=== PATIENT | female | born 1965 | race Caucasian/White ===

== ENCOUNTER 2017-09-22 18:38 | Emergency (ER) | payer MEDICAID ==
[~2017-09-22] VITALS: Ht 160 cm; Wt 61.7 kg
[2017-09-22 20:48] VITALS: BP 129/78
== END 2017-09-22 20:49 | disposition home or self-care (01) ==
LOC: ED 18:38
DX: S60.463A Insect bite (nonvenomous) of left middle finger, initial encounter (principal); L03.011 Cellulitis of right finger; W57.XXXA Bitten or stung by nonvenomous insect and other nonvenomous arthropods, initial encounter; Y93.89 Activity, other specified; Y92.89 Other specified places as the place of occurrence of the external cause; Y99.8 Other external cause status

== ENCOUNTER 2017-11-07 18:17 | Emergency (ER) | payer MEDICAID ==
[2017-11-07 21:45] VITALS: BP 149/92
== END 2017-11-07 21:45 | disposition home or self-care (01) ==
LOC: ED 18:17
DX: M54.6 Pain in thoracic spine (principal); R03.0 Elevated blood-pressure reading, without diagnosis of hypertension
CPT/HCPCS: J1885

== ENCOUNTER 2018-02-13 09:52 | Emergency (ER) | payer OTHER ==
[~2018-02-13] VITALS: Ht 162.6 cm; Wt 61.0 kg
[2018-02-13 10:14] VITALS: BP 131/90; Ht 162.6 cm; Wt 61.0 kg
== END 2018-02-13 11:12 | disposition home or self-care (01) ==
LOC: ED 09:52
DX: J30.9 Allergic rhinitis, unspecified (principal)

== ENCOUNTER 2018-10-16 07:30 | Observation (INO) | payer OTHER ==
[~2018-10-16] VITALS: Ht 160 cm; Wt 74.4 kg
[2018-10-16 10:14] VITALS: BP 128/80
--- NOTE | 2018-10-16 14:30 | NUR ---
PT WAS RECEIVED BY PRIMARY NURSE RAMONA FROM PACU, S/P LEFT OVARIAN CYSTECTOMY. PT IS AAOX4. DENIES HEADACHE/DIZZINESS. NO SOB NOTED. DENIES CHEST PAIN/PRESSURE. STATED THAT SHE HAS 6/10 ACHING LOWER ABDOMINAL PAIN, DENIES NAUSEA/VOMITING. BOWEL SOUNDS ACTIVE. W/ DEJESUS CATHETER DRAINING W/ YELLOW COLORED URINE. W/ ISLAND DRESSING ON THE LOWER ABDOMEN, CDI. IV SITE ON THE LEFT HAND IS PATENT AND INTACT. SIDE RAILS UPX2. CALL LIGHT ON REACH. ENDORSED TO PRIMARY NURSE RAMONA FOR CONTINUITY OF CARE
--- NOTE | 2018-10-16 14:30 | NUR ---
RECIEVED PT. FROM RECOVERY ROOM [facility]IA [facility],AWAKE,ALERT AND ORIENTED.S/P EXPLOR LAP REMOVED LEFT PERITUBAL CYST TWISTED,LOWER ABD. INCISSION SUTURES W/ SHIRLENE,ISLAND DRESSING CDI. DEJESUS CATH. PATENT DRAINING YELLOW COLOR URINE,IVL IN LEFT HAND PATENT. V/S STABLE.ORIENTED TO ROOM AND SURROUNDINGS,MADE PT. COMFORTABLE IN BED.CALL LIGHT W/ IN REACH.
[2018-10-16 14:53] VITALS: BP 121/70
[2018-10-16 16:15] VITALS: BP 102/60
--- NOTE | 2018-10-16 18:48 | NUR ---
PT. DENIES ANY PAIN AT THIS TIME.NO ACUTE DISTRESS NOTED. CALL LIGHT W/ IN REACH.
--- NOTE | 2018-10-16 20:27 | NUR ---
PT CURRENTLY RESTING IN BED, NO ACUTE DISTRESS. A/O X4. NO TELE, MED/SURG. DENIES CHEST PAIN. PULSES PALPABLE IN ALL EXTREMITIES, NO EDEMA NOTED. LUNG SOUNDS CTA BILATERALLY, DENIES SOB. BOWEL SOUNDS ACTIVE, LAST BM 10/16/18. DEJESUS CATHETER IN PLACE, YELLOW URINE NOTED. AMBULATORY. LOWER ABD INCISION, DRESSING INTACT. ABD PAIN 8/10, MEDICATED PER EMAR. IV PATENT AND INTACT. BED IN LOWEST POSITION, SIDE RAILS UP X2, CALL LIGHT WITHIN REACH. WILL CONTINUE TO MONITOR.
[2018-10-16 21:16] VITALS: BP 110/63
--- NOTE | 2018-10-17 01:29 | NUR ---
PT CURRENTLY RESTING IN BED, NO ACUTE DISTRESS. WILL CONTINUE TO MONITOR.
[2018-10-17 05:42] VITALS: BP 101/67
--- NOTE | 2018-10-17 06:21 | NUR ---
PT SLEPT PERIODICALLY THROUGHOUT NIGHT, NO ACUTE DISTRESS. ALL NEEDS MET AND ATTENDED TO. NO SIGNIFICANT CHANGES. IV PATENT AND INTACT. MEDICATED PAIN PER EMAR. BED IN LOWEST POSITION, SIDE RAILS UP X2, CALL LIGHT WITHIN REACH. WILL ENDORSE CARE TO ONCOMING NURSE.
[2018-10-17 06:26] LABS: PLATELET COUNT 208 x10^3mcL (130-400); RED CELL DISTRIBUTION WIDTH 13.1 % (11.5-14.5)
--- NOTE | 2018-10-17 06:29 | NUR ---
DEJESUS CATHETER REMOVED BY KEITH BANGURA. NO ACUTE DISTRESS. WILL ENDORSE TO ONCOMING NURSE.
[2018-10-17 06:57] LABS: BASOPHIL % 0 % (0-2)
[2018-10-17 07:09] LABS: RAPID PLASMA REAGIN Non Reactive (Non Reactive)
--- NOTE | 2018-10-17 07:50 | NUR ---
AWAKE,ALERT AND ORIENTED. DENIES ABD. DISCOMFORT/NO PAIN AT THIS TIME.ENCOURAGE OOB FOR BREAKFAST TO CHAIR. S/P EXPLOR LAP 10/16,LOWER ABD.INCISIONAL AREA W/ DRESSING CDI W/ ABDOMINAL BINDER APPLIED.HL PATENT. NO ACUTE DISTRESS NOTED. WELL CONT. PLAN OF CARE.
[2018-10-17 08:07] VITALS: BP 113/60
--- NOTE | 2018-10-17 09:30 | NUR ---
PT. ENCOURAGE TO AMBULATE IN THE BATHROOM AND VOIDING WELL OOB TO CHAIR AT BEDSIDE PARTHA WELL.
--- NOTE | 2018-10-17 09:45 | NUR ---
PT. C/O LOWER ABD. PAIN MEDICATED FOR PAIN ORDERED.MADE PT. COMFORTABLE IN BED. CALL LIGHT W/ IN REACH.WILL CONT. TO MONITOR PT.
[2018-10-17 12:07] VITALS: BP 110/67
--- NOTE | 2018-10-17 13:09 | NUR ---
CLEAR LIQUID DIET PARTHA. WELL DENIES N/V.OOB TO CHAIR AT BEDSIDE FOR LUNCH.
--- NOTE | 2018-10-17 15:00 | NUR ---
PT. C/O ABD. INCISIONAL AREA IN LOWER ABD. MEDICATED W/ NORCO ORDERED FOR PAIN.AMBULATED IN THE BATHROOM AND VOIDING WELL.
--- NOTE | 2018-10-17 16:13 | NUR ---
ENCOURAGE PT. TO OOB AMBULATIOM IN HER ROOM 10 X PARTHA. WELL.DENIES ANY PAIN AT THIS TIME,CALL LIGHT W/ IN REACH.
[2018-10-17 16:15] VITALS: BP 110/60
--- NOTE | 2018-10-17 19:29 | NUR ---
PT CURRENTLY RESTING IN BED, NO ACUTE DISTRESS. A/O X4. NO TELE, MED/SURG. DENIES CHEST PAIN. PULSES PALPABLE IN ALL EXTREMITIES, NO EDEMA NOTED. LUNG SOUNDS CTA BILATERALLY, DENIES SOB. BOWEL SOUNDS ACTIVE, LAST BM 10/16/18, PASSING GAS. VOIDING WELL. AMBULATORY. LOWER ABD INCISION, DRESSING INTACT. MINIMAL SEROSANGUINOUS DRAINAGE NOTED. PT STATES ABD PAIN 6/10, REFUSING MEDICATION AT THIS TIME. IV PATENT AND INTACT. BED IN LOWEST POSITION, SIDE RAILS UP X2, CALL LIGHT WITHIN REACH. WILL CONTINUE TO MONITOR.
[2018-10-17 19:57] VITALS: BP 121/79
--- NOTE | 2018-10-18 00:21 | NUR ---
PT CURRENTLY RESTING IN BED, NO ACUTE DISTRESS. WILL CONTINUE TO MONITOR.
[2018-10-18 04:55] VITALS: BP 101/64
--- NOTE | 2018-10-18 05:59 | NUR ---
PT SLEPT PERIODICALLY THROUGHOUT NIGHT, NO ACUTE DISTRESS. ALL NEEDS MET AND ATTENDED. NO SIGNIFICANT CHANGES. IV PATENT AND INTACT. MEDICATED PAIN PER EMAR. BED IN LOWEST POSITION, SIDE RAILS UP X2, CALL LIGHT WITHIN REACH. WILL ENDORSE CARE TO ONCOMING NURSE.
--- NOTE | 2018-10-18 07:30 | NUR ---
RECEIVED PATIENT SITTING UP ON THE SIDE OF THE BED. ALERT ORIENTED ABLE TO VERBALIZE NEEDS WELL IN ROMANSH AND A LITTLE SERBIAN. HL PATENT LEFT HAND, FLUSHED WELL. PATIENT NOT ON TELE MED/SURG, DENIES ANY CHEST PAIN. OOB AND AMUBLATING, PASSING GAS. TOLERATING CLEAR LIQUID DIET WELL. DRESSING OVER LOWER ABD SURGICAL SITE NOTED WITH SMALL AMOUNT OF STAINING NOTED. ABD BINDER IN PLACE. ABD PAIN 3/10 ON THE PAIN SCALE AND PT DECLINES ANY PAIN MED AT THIS TIME. RESP EVEN AND UNLABORED, LUNGS CLEAR ON ROOM AIR. PATIENT INSTRUCTED TO USE CALL LIGHT FOR ASSIST, BED IN LOW POSITION AND LOCKED. WILL CONTINUE TO [facility].
[2018-10-18 08:26] VITALS: BP 101/64
[2018-10-18 08:44] VITALS: BP 118/81
[2018-10-18 09:17] VITALS: BP 101/64
--- NOTE | 2018-10-18 11:59 | NUR ---
PATIENT UP OOB AMBULATING IN ROOM. C/O LOWER ABD SURGICAL AREA PAIN 5/10 ON THE PAIN SCALE. MEDCIATED WITH NORCO PO ORDERED. WILL MONITOR FOR EFFECT.
--- NOTE | 2018-10-18 13:53 | NUR ---
PATIENT SITTING UP IN BED TALKING ON PHONE. TOLERATED REGULAR DIET FOR LUNCH WELL. PER PATIENT ABD PAIN HAS SUBSIDED AFTER NORCO WAS GIVEN. WILL CONTINUE TO MONITOR. PATIENT TO D/C HOME TODAY.
--- NOTE | 2018-10-18 14:19 | NUR ---
PATIENT'S PLAN OF CARE WAS DISCUSSED AND REVIEWED WITH CIGARETTE EXAMINER:GIOVANNI VILLAGRAN. I HAVE REVIEWED THE DATA COLLECTION BY CIGARETTE EXAMINER (NAME):GIOVANNI VILLAGRAN. ENTERED ON (DATE/TIME):10/18/18 I CONCUR WITH THE DATA AND ANY EXCEPTIONS OR COMMENTS ARE LISTED BELOW:
--- NOTE | 2018-10-18 14:47 | NUR ---
PATIENT READY FOR D/C HOME. TOLERATED REGULAR DIET WELL. IV DC'D. PICTURE TAKEN OF ABD SURGICAL SITE AND DRESSING CHANGE DONE. SHIRLENE APPEARC/D/I. PATIENT PROVIDED EXTRA DRESSINGS. D/C INSTRUCTIONS TRANSLATED FOR PATIENT IN [place] BY LEIGHANN BANGURA AT BEDSIDE. NO ACUTE DISTRESS NOTED. SON HERE IN LOBBY TO TAKE PATIENT HOME. CONDITIION APPEARS STABLE.
== END 2018-10-18 14:47 | disposition home or self-care (01) | DRG 513 ==
LOC: MU 07:30
PROVIDERS: ADMIT Obstetrics & Gynecology
PROC: 0UB10ZZ Excision of Left Ovary, Open Approach (ICD-10-PCS; principal; 2018-10-16 12:00)
DX: N83.8 Other noninflammatory disorders of ovary, fallopian tube and broad ligament (principal); Z98.51 Tubal ligation status
CPT/HCPCS: G0378; J0330; J0690; J1170; J2250; J2270; J2405; J2704; J2710; J3010; J3490; J7120

== ENCOUNTER 2018-11-06 12:39 | Emergency (ER) | payer OTHER ==
[~2018-11-06] VITALS: Ht 160 cm; Wt 62.1 kg
[2018-11-06 12:42] VITALS: Ht 160 cm; Wt 62.1 kg
[2018-11-06 14:26] VITALS: BP 121/78
== END 2018-11-06 14:26 | disposition home or self-care (01) ==
LOC: ED 12:39
DX: M54.5 Low back pain (principal)

== ENCOUNTER 2019-01-05 22:25 | Emergency (ER) | payer OTHER ==
[~2019-01-05] VITALS: Ht 160 cm; Wt 64.9 kg
[2019-01-05 22:45] VITALS: Ht 160 cm; Wt 64.9 kg
[2019-01-05 23:43] LABS: CALCIUM 9.3 mg/dL (8.5-10.1); CHLORIDE SERUM 105 mmol/L (98-107); CREATININE SERUM 0.4 mg/dL (0.6-1.0); GFR1 > 60 mL/min; GLUCOSE SERUM 81 mg/dL (74-106); POTASSIUM SERUM 3.5 mmol/L (3.5-5.1); SODIUM SERUM 143 mmol/L (136-145)
[2019-01-05 23:47] LABS: ALBUMIN 3.9 g/dL (3.4-5.0); ALKALINE PHOSPHATASE 131 U/L (46-116); ALT/SGPT 68 U/L (14-59); AST/SGOT 31 U/L (15-37); BILIRUBIN TOTAL 0.35 mg/dL (0.20-1.00); TOTAL PROTEIN, SERUM 7.9 g/dL (6.4-8.2)
[2019-01-05 23:48] LABS: BASOPHIL % 0.3 % (0-2); PLATELET COUNT 210 x10^3mcL (130-400); RED CELL DISTRIBUTION WIDTH 13.3 % (11.5-14.5)
[2019-01-06 01:16] VITALS: BP 141/77
== END 2019-01-06 01:16 | disposition home or self-care (01) ==
LOC: ED 22:25
PROVIDERS: Emergency Medicine
DX: K62.5 Hemorrhage of anus and rectum (principal); R10.84 Generalized abdominal pain
CPT/HCPCS: 36415

== ENCOUNTER 2019-03-28 12:30 | Emergency (ER) | payer OTHER ==
[~2019-03-28] VITALS: Ht 160 cm; Wt 63.5 kg
[2019-03-28 12:46] VITALS: Ht 160 cm; Wt 63.5 kg
[2019-03-28 14:18] VITALS: BP 125/83
== END 2019-03-28 14:18 | disposition home or self-care (01) ==
LOC: ED 12:30
DX: J30.9 Allergic rhinitis, unspecified (principal)

== ENCOUNTER 2020-03-23 11:39 | Emergency (ER) | payer OTHER ==
[~2020-03-23] VITALS: Ht 162.6 cm; Wt 63.0 kg
[2020-03-23 12:00] VITALS: Ht 162.6 cm; Wt 63.0 kg
[2020-03-23 13:15] LABS: BASOPHIL % 0.4 % (0-2); PLATELET COUNT 203 x10^3mcL (130-400); RED CELL DISTRIBUTION WIDTH 13.2 % (11.5-14.5)
[2020-03-23 13:28] LABS: CARBON DIOXIDE 26.2 mmol/L (21-32); CHLORIDE SERUM 105 mmol/L (98-107); CREATININE SERUM 0.6 mg/dL (0.6-1.0); GFR1 > 60 mL/min; GLUCOSE SERUM 93 mg/dL (74-106); POTASSIUM SERUM 3.7 mmol/L (3.5-5.1); SODIUM SERUM 141 mmol/L (136-145)
[2020-03-23 13:32] LABS: ALBUMIN 3.8 g/dL (3.4-5.0); ALKALINE PHOSPHATASE 113 U/L (46-116); ALT/SGPT 35 U/L (14-59); AST/SGOT 17 U/L (15-37); BILIRUBIN TOTAL 0.4 mg/dL (0.20-1.00); TOTAL PROTEIN, SERUM 7.3 g/dL (6.4-8.2)
[2020-03-23 13:51] LABS: microscopic required? NO
[2020-03-23 14:10] LABS: urine erythrocyte NEGATIVE (NEGATIVE)
[2020-03-23 14:54] VITALS: BP 140/80
== END 2020-03-23 14:54 | disposition home or self-care (01) ==
LOC: ED 11:39
PROVIDERS: Emergency Medicine
DX: K63.89 Other specified diseases of intestine (principal); R03.0 Elevated blood-pressure reading, without diagnosis of hypertension
CPT/HCPCS: 36415

== ENCOUNTER 2020-08-20 17:31 | Emergency (ER) | payer OTHER ==
[~2020-08-20] VITALS: Ht 160 cm; Wt 73.0 kg
[2020-08-20 18:00] VITALS: Ht 160 cm; Wt 73.0 kg
[2020-08-20 20:19] VITALS: BP 110/78
== END 2020-08-20 20:19 | disposition home or self-care (01) ==
LOC: ED 17:31
DX: S86.911A Strain of unspecified muscle(s) and tendon(s) at lower leg level, right leg, initial encounter (principal); X58.XXXA Exposure to other specified factors, initial encounter; Y93.89 Activity, other specified; Y92.89 Other specified places as the place of occurrence of the external cause; Y99.8 Other external cause status
CPT/HCPCS: Q0092